=== PATIENT | female | born 1970 | race Two or more races ===

== ENCOUNTER 2024-03-25 22:52 | Emergency (ER) | payer OTHER ==
[~2024-03-25] VITALS: Ht 165.1 cm; Wt 58.5 kg
[2024-03-25] MEDS ORDERED: CLIMARA PRO PA1 EACH TD (23:18)
[2024-03-26] MEDS ORDERED: ACETAMINOPHEN WITH CODEINE 1 UDTAB TABLET PO STA (00:33)
[2024-03-26] MEDS ORDERED: KETOROLAC TROMETHAMINE 30 MG VIAL IV STA (00:33)
[2024-03-26] MEDS ORDERED: CIPROFLOXACIN IN 5 % DEXTROSE 400 MG/200 ML PIGGYBAG IV STA (00:34)
[2024-03-26] MEDS ORDERED: KETOROLAC TROMETHAMINE 30 MG VIAL ONE (00:36)
[2024-03-26] MEDS ORDERED: CIPROFLOXACIN IN 5 % DEXTROSE 400 MG/200 ML PIGGYBAG IV ONE (00:36)
[2024-03-26 01:22] LABS: PH,URINE 7.5 (5.0-8.0); URINE APPEARANCE Clear; URINE BILIRRUBIN Negative (NEGATIVE); URINE BLOOD Large; URINE COLOR Yellow; URINE GLUCOSE Negative (NEGATIVE); URINE KETONE Negative (NEGATIVE); URINE LEUKOCYTE Moderate; URINE NITRATE Negative; URINE PROTEIN Trace (NEGATIVE); URINE UROBILINOGEN 0.2 E.U./dl
[2024-03-26 01:25] LABS: URINE BACTERIA 593.2 uL (0.0-1933); URINE EPITHELIAL CELLS 4.1 uL (0.0-38.8); URINE RBC 199.2 uL (0.0-20.8)
[2024-03-26 01:48] LABS: URINE CAST 0.15 uL (0.0-1.40)
== END 2024-03-26 02:55 | disposition home or self-care (01) ==
LOC: ER 22:54
DX: N30.80 Other cystitis without hematuria (principal)
CPT/HCPCS: 96365; 99282; J0744; J1885

== ENCOUNTER 2024-05-23 15:03 | Emergency (ER) | payer OTHER ==
[~2024-05-23] VITALS: Ht 167.6 cm; Wt 59.0 kg
[~2024-05-23 15:03] MED LIST: CLIMARA PRO PA1 EACH TD
[2024-05-23] MEDS ORDERED: 0.9 % SODIUM CHLORIDE 1,000 ML IV SCH (16:30)
[2024-05-23 16:46] LABS: HEMATOCRIT 42.7 % (36.0-45.00); HEMOGLOBIN 14.4 g/dL (12.0-15.00); MEAN CELL VOLUME 90.4 fL (80.00-100.00); MEAN CORPUSCULAR HEMOGLOBIN 30.5 pg (27.00-32.0); MEAN CORPUSCULAR HGB CONC 33.8 g/dl (32.0-36.0); PLATELET COUNT 271 K/uL (150-450); RED BLOOD COUNT 4.72 M/uL (4.00-6.00); RED CELL DISTRIBUTION WIDTH 13.1 % (11.5-14.5)
[2024-05-23 16:51] LABS: PH,URINE 7.5 (5.0-8.0); URINE APPEARANCE Clear; URINE BILIRRUBIN Negative (NEGATIVE); URINE BLOOD Negative; URINE COLOR Yellow; URINE GLUCOSE Negative (NEGATIVE); URINE KETONE Negative (NEGATIVE); URINE LEUKOCYTE Negative; URINE NITRATE Negative; URINE PROTEIN Negative (NEGATIVE); URINE UROBILINOGEN 0.2 E.U./dl
[2024-05-23 16:52] LABS: URINE BACTERIA 16.3 uL (0.0-1933); URINE EPITHELIAL CELLS 3.3 uL (0.0-38.8); URINE WBC 4.3 uL (0.0-23.2)
[2024-05-23 16:56] LABS: URINE RBC 1.5 uL (0.0-20.8)
[2024-05-23 17:15] LABS: ALBUMIN 4.3 gm/dL (3.4-5.0); BILIRUBIN TOTAL 0.55 mg/dL (0.3-1.2); CALCIUM 9.2 mg/dL (8.5-10.1); CREATININE SERUM 0.97 mg/dL (0.55-1.02); GFR 59.84; GLOBULINA 3.6 G/DL (2.4-3.5); POTASSIUM 4.35 mEq/L (3.5-5.1); TOTAL PROTEIN 7.9 gm/dL (6.4-8.2)
== END 2024-05-23 21:34 | disposition home or self-care (01) ==
LOC: ER 15:05
PROVIDERS: General Practice
DX: R10.9 Unspecified abdominal pain (principal)
CPT/HCPCS: 36415; 74177; 96365; 96366; 99284; J7030; Q9965